=== PATIENT | female | born 1970 | race African-American/Black ===

== ENCOUNTER → 2023-09-09 | Outpatient (CLI) | payer BC ==
[2023-09-09 09:54] LABS: BASOPHILS % 0.4 % (0.0-2.0); EOSINOPHILS % 1.5 % (0.0-5.0); HEMATOCRIT. 44.3 % (36.0-48.0); HEMOGLOBIN. 14.8 g/dL (12.0-16.0); LYMPHOCYTES % 33.5 % (20.0-50.0); MEAN CORPUSCULAR HGB CONC 33.4 g/dL (31.0-37.0); MEAN CORPUSCULAR VOLUME 92.9 fL (81.0-99.0); MEAN PLATELET VOLUME 8.8 fl (7.4-10.4); NEUTROPHILS % 57.6 % (40.0-76.0); PLATELET 192 x1000/uL (130-400); RED BLOOD CELL COUNT 4.77 mill/uL (4.2-5.4); RED CELL DISTRIBUTION WIDTH 16.8 % (11.6-14.6); WHITE BLOOD COUNT 7.2 x1000/uL (4.5-11.0)
[2023-09-09 10:33] LABS: ALANINE AMINOTRANSFERASE 25 IU/L (10-49); ASPARTATE AMINOTRANSFERASE 16 IU/L (<34); BILIRUBIN TOTAL 0.5 mg/dL (0.1-1.0); CARBON DIOXIDE 28 mEq/L (21-32); CHLORIDE 110 mEq/L (98-107); CREATININE 0.8 mg/dL (0.6-1.0); GLUCOSE 98 mg/dL (70-105); POTASSIUM 3.9 mEq/L (3.5-5.1); PROTEIN TOTAL 6.6 g/dL (6.0-8.3); SODIUM 142 mEq/L (136-145); UREA NITROGEN BLOOD 10 mg/dL (9-23)
[2023-09-09 16:04] LABS: CLARITY URINE CLOUDY (CLEAR); COLOR URINE YELLOW (YELLOW); GLUCOSE URINE NEGATIVE (NEGATIVE); KETONES URINE NEGATIVE (NEGATIVE); LEUKOCYTE ESTERASE URINE NEGATIVE (NEGATIVE); NITRITE URINE NEGATIVE (NEGATIVE); OCCULT BLOOD URINE 2+ (NEGATIVE); PH URINE 5.5 (4.5-8.0); PROTEIN URINE NEGATIVE (NEGATIVE); SPECIFIC GRAVITY URINE 1.026 (1.005-1.030)
[2023-09-09 16:27] LABS: BACTERIA URINE 3+; SQUAMOUS EPITHELIAL CELL URINE 2+ /lpf (RARE/1+); WBC URINE 0-2 /hpf (0-2)
== END | disposition home or self-care (01) ==
LOC: LAB 09:28
PROVIDERS: ATTEND Nurse Practitioner Family
DX: Z01.812 Encounter for preprocedural laboratory examination (principal); L73.2 Hidradenitis suppurativa; I10 Essential (primary) hypertension
CPT/HCPCS: 36415; 80053; 81003; 85025

== ENCOUNTER → 2023-09-11 | Outpatient (CLI) | payer BC ==
[~2023-09-11] MED LIST: AMLO5TAB88 PO; MELO-106 PO; NAPR220C15 PO
== END | disposition home or self-care (01) ==
LOC: MRI 16:18
PROVIDERS: ATTEND Nurse Practitioner Family
DX: S83.281A Other tear of lateral meniscus, current injury, right knee, initial encounter (principal); S80.01XA Contusion of right knee, initial encounter; M71.21 Synovial cyst of popliteal space [Baker], right knee; M25.461 Effusion, right knee; X58.XXXA Exposure to other specified factors, initial encounter; Y93.89 Activity, other specified; Y92.89 Other specified places as the place of occurrence of the external cause; Y99.8 Other external cause status
CPT/HCPCS: 73721

== ENCOUNTER 2023-09-12 15:07 | Emergency (ER) | payer BC ==
[~2023-09-12] VITALS: Ht 165.1 cm; Wt 117.9 kg
[2023-09-12 15:13] VITALS: BP 151/124; O2SAT 99
[2023-09-12 19:08] VITALS: PULSE 104; RESP 16; TEMP 98.6
[2023-09-18] MEDS ORDERED: AMLO5TAB88 PO (05:21)
[2023-09-18] MEDS ORDERED: MELO-106 PO (05:21)
[2023-09-18] MEDS ORDERED: NAPR220C15 PO (05:21)
== END 2023-09-12 19:18 | disposition home or self-care (01) ==
LOC: ER 15:07
DX: S83.206A Unspecified tear of unspecified meniscus, current injury, right knee, initial encounter (principal); J45.909 Unspecified asthma, uncomplicated; Z90.710 Acquired absence of both cervix and uterus; X58.XXXA Exposure to other specified factors, initial encounter; Y93.89 Activity, other specified; Y92.89 Other specified places as the place of occurrence of the external cause; Y99.8 Other external cause status
CPT/HCPCS: 93971; 99284; Z7610; L1830

== ENCOUNTER → 2023-09-18 | Day surgery (SDC) | payer BC ==
[~2023-09-18] VITALS: Ht 165.1 cm; Wt 117.9 kg
[~2023-09-18] MED LIST changes: +BUPIVACAINE HCL/PF 0.5% (5MG/ML) 10ML ONE; +HYDROMORPHONE HCL/PF 2MG/ML CPJ IV PRN; +LABETALOL 5MG/ML SYR 20 MG/4 ML SYRINGE IV PRN; +LACTATED RINGERS 1,000 ML IV SCH; +MEPERIDINE HCL/PF 25MG/ML CPJ IV PRN; +ONDANSETRON HCL 4MG/2ML INJ IV PRN; +SKIN ADHESIVE 0.7 GM EA TOP ONE
== END | disposition home or self-care (01) ==
LOC: OR 06:50 → EDUNIT# 07:30
PROVIDERS: ATTEND Surgery
DX: L73.2 Hidradenitis suppurativa (principal); I10 Essential (primary) hypertension; M19.90 Unspecified osteoarthritis, unspecified site; M10.9 Gout, unspecified; Z87.891 Personal history of nicotine dependence; Z79.899 Other long term (current) drug therapy; Z98.890 Other specified postprocedural states; Z90.710 Acquired absence of both cervix and uterus
CPT/HCPCS: 11450; 88305; J3490

== ENCOUNTER → 2023-12-08 | Outpatient (CLI) | payer BC ==
[~2023-12-08] MED LIST changes: -BUPIVACAINE HCL/PF 0.5% (5MG/ML) 10ML ONE; -HYDROMORPHONE HCL/PF 2MG/ML CPJ IV PRN; -LABETALOL 5MG/ML SYR 20 MG/4 ML SYRINGE IV PRN; -LACTATED RINGERS 1,000 ML IV SCH; -MEPERIDINE HCL/PF 25MG/ML CPJ IV PRN; -ONDANSETRON HCL 4MG/2ML INJ IV PRN; -SKIN ADHESIVE 0.7 GM EA TOP ONE
== END | disposition home or self-care (01) ==
LOC: RAD 12:47
PROVIDERS: ATTEND Nurse Practitioner Family
DX: M17.0 Bilateral primary osteoarthritis of knee (principal); M25.561 Pain in right knee; M25.562 Pain in left knee
CPT/HCPCS: 73565

== ENCOUNTER 2025-04-14 07:17 | Emergency (ER) | payer BC, MEDICAID ==
[~2025-04-14] VITALS: Ht 165.1 cm; Wt 112.0 kg
[2025-04-14 07:29] VITALS: O2SAT 100
[2025-04-14 08:11] LABS: BASOPHILS % 0.5 % (0.0-2.0); EOSINOPHILS % 1.2 % (0.0-5.0); HEMATOCRIT. 46.7 % (36.0-48.0); HEMOGLOBIN. 15.6 g/dL (12.0-16.0); LYMPHOCYTES % 27.3 % (20.0-50.0); MEAN PLATELET VOLUME 9.3 fl (7.4-10.4); MONOCYTES % 7.8 % (2.0-8.0); NEUTROPHILS % 63.2 % (40.0-76.0); PLATELET 206 x1000/uL (130-400); RED BLOOD CELL COUNT 5.03 mill/uL (4.2-5.4); RED CELL DISTRIBUTION WIDTH 16.5 % (11.6-14.6)
[2025-04-14] MEDS: DIPHENOXYLATE/ATROPINE 2.5/0.025MG TABLET PO ONE (08:30)
[2025-04-14 08:32] LABS: CREATININE 1.0 mg/dL (0.6-1.0); TROPONIN I HIGH SENSITIVITY < 4 ng/L (3.0-34)
[2025-04-14 08:33] LABS: UREA NITROGEN BLOOD 12 mg/dL (9-23)
[2025-04-14 08:34] LABS: ASPARTATE AMINOTRANSFERASE 21 IU/L (<34)
[2025-04-14 08:35] LABS: BILIRUBIN DIRECT 0.2 mg/dL (<=3.0); BILIRUBIN TOTAL 0.7 mg/dL (0.1-1.0); PROTEIN TOTAL 7.1 g/dL (6.0-8.3)
[2025-04-14] MEDS ORDERED: DIPH1TAB MT (08:44)
[2025-04-14] MEDS: DIPHENOXYLATE/ATROPINE 2.5/0.025MG TABLET PO SCH (09:41)
[2025-04-14 09:54] VITALS: BP 128/89; PULSE 92; RESP 16; TEMP 37; O2SAT 100
[2025-04-15] MEDS ORDERED: IBUP-2030 MT (13:39)
== END 2025-04-14 09:43 | disposition home or self-care (01) ==
LOC: ER 07:17
DX: A08.4 Viral intestinal infection, unspecified (principal); J45.909 Unspecified asthma, uncomplicated; R07.9 Chest pain, unspecified; Z90.710 Acquired absence of both cervix and uterus
CPT/HCPCS: 36415; 80048; 80076; 84484; 85025; 93005; 99284

== ENCOUNTER 2025-04-15 10:00 | Emergency (ER) | payer BC, MEDICAID ==
[~2025-04-15] VITALS: Ht 165.1 cm; Wt 112.0 kg
[~2025-04-15 10:00] MED LIST changes: +DIPH1TAB MT
[2025-04-15 10:09] VITALS: TEMP 36.9; O2SAT 100
[2025-04-15 10:44] LABS: BASOPHILS % 0.2 % (0.0-2.0); EOSINOPHILS % 0.9 % (0.0-5.0); HEMATOCRIT. 47.5 % (36.0-48.0); HEMOGLOBIN. 15.6 g/dL (12.0-16.0); LYMPHOCYTES % 26.0 % (20.0-50.0); MEAN PLATELET VOLUME 8.7 fl (7.4-10.4); MONOCYTES % 6.4 % (2.0-8.0); NEUTROPHILS % 66.5 % (40.0-76.0); PLATELET 190 x1000/uL (130-400); RED BLOOD CELL COUNT 5.10 mill/uL (4.2-5.4); RED CELL DISTRIBUTION WIDTH 16.6 % (11.6-14.6)
[2025-04-15 10:57] LABS: CREATININE 1.0 mg/dL (0.6-1.0)
[2025-04-15 10:58] LABS: UREA NITROGEN BLOOD 15 mg/dL (9-23)
[2025-04-15] MEDS: ONDANSETRON HCL 4MG/2ML INJ IV ONE (11:35)
[2025-04-15] MEDS: KETOROLAC 30MG/ML VIAL IV ONE (11:35)
[2025-04-15 12:12] LABS: HCG SCREEN NEGATIVE
[2025-04-15 12:20] LABS: ASPARTATE AMINOTRANSFERASE 19 IU/L (<34); BILIRUBIN DIRECT 0.2 mg/dL (<=3.0); BILIRUBIN TOTAL 0.5 mg/dL (0.1-1.0); PROTEIN TOTAL 6.9 g/dL (6.0-8.3); TROPONIN I HIGH SENSITIVITY < 4 ng/L (3.0-34)
[2025-04-15] MEDS: SODIUM CHLORIDE 0.9% 1,000 ML IV ONE (13:22)
[2025-04-15] MEDS ORDERED: IBUP-2030 MT (13:39)
[2025-04-15] MEDS ORDERED: IOHEXOL-300 100 ML BOTTLE ONE (15:41)
[2025-04-15 16:09] VITALS: BP 135/84; PULSE 78; RESP 18; O2SAT 100
== END 2025-04-15 16:10 | disposition home or self-care (01) ==
LOC: ER 10:00
DX: R10.84 Generalized abdominal pain (principal); I10 Essential (primary) hypertension; J45.909 Unspecified asthma, uncomplicated; Z90.49 Acquired absence of other specified parts of digestive tract; Z90.710 Acquired absence of both cervix and uterus
CPT/HCPCS: 80076; 80048; 84703; 83690; 85025; 84484; 36415; 74177; 93005; 96361; 96374; 96375; 99285; Q9967; J1885; J2405; J7030; Z7610

== ENCOUNTER 2025-04-19 00:36 | Emergency (ER) | payer BC, MEDICAID ==
[~2025-04-19] VITALS: Ht 157.5 cm; Wt 104.0 kg
[~2025-04-19 00:36] MED LIST changes: +IBUP-2030 MT
[2025-04-19 00:44] VITALS: O2SAT 100
[2025-04-19] MEDS ORDERED: FAMOTIDINE 20MG/2ML VIAL IV STA (01:32)
[2025-04-19] MEDS: FAMOTIDINE 20MG/2ML VIAL IV NR (03:11)
[2025-04-19] MEDS: ONDANSETRON HCL 4MG/2ML INJ IV STA (03:14)
[2025-04-19] MEDS: MORPHINE SULFATE 4 MG/ML INJ (FOR IV/IM USE) IV STA (03:14)
[2025-04-19] MEDS: SODIUM CHLORIDE 0.9% 1,000 ML IV ONE (03:14)
[2025-04-19 03:16] LABS: BASOPHILS % 0.3 % (0.0-2.0); EOSINOPHILS % 2.8 % (0.0-5.0); HEMATOCRIT. 46.0 % (36.0-48.0); HEMOGLOBIN. 15.4 g/dL (12.0-16.0); LYMPHOCYTES % 24.3 % (20.0-50.0); MEAN PLATELET VOLUME 9.8 fl (7.4-10.4); MONOCYTES % 9.5 % (2.0-8.0); NEUTROPHILS % 63.1 % (40.0-76.0); PLATELET 191 x1000/uL (130-400); RED BLOOD CELL COUNT 4.94 mill/uL (4.2-5.4); RED CELL DISTRIBUTION WIDTH 16.6 % (11.6-14.6)
[2025-04-19 03:21] LABS: CREATININE 0.8 mg/dL (0.6-1.0); UREA NITROGEN BLOOD 7 mg/dL (9-23)
[2025-04-19 03:23] LABS: ASPARTATE AMINOTRANSFERASE 13 IU/L (<34); BILIRUBIN DIRECT 0.2 mg/dL (<=3.0); BILIRUBIN TOTAL 0.5 mg/dL (0.1-1.0)
[2025-04-19 03:24] LABS: PROTEIN TOTAL 6.7 g/dL (6.0-8.3)
[2025-04-19 04:00] LABS: HCG SCREEN NEGATIVE
[2025-04-19] MEDS ORDERED: ONDA4TAB50 MT (04:15)
[2025-04-19 04:39] VITALS: BP 142/70; PULSE 76; RESP 14; TEMP 37; O2SAT 100
== END 2025-04-19 05:25 | disposition home or self-care (01) ==
LOC: ER 00:36
DX: R10.13 Epigastric pain (principal); R11.2 Nausea with vomiting, unspecified; R19.7 Diarrhea, unspecified; I10 Essential (primary) hypertension; J45.909 Unspecified asthma, uncomplicated; Z90.710 Acquired absence of both cervix and uterus; Z90.49 Acquired absence of other specified parts of digestive tract
CPT/HCPCS: 99285; 74176; 96374; 96375; 71045; 96361; 80076; 80048; 84703; 83690; 85025; 36415; J1308; J2405; J2270; J7030

== ENCOUNTER 2025-07-23 08:13 | Emergency (ER) | payer BC, MEDICAID ==
[~2025-07-23] VITALS: Ht 165.1 cm; Wt 109.0 kg
[~2025-07-23 08:13] MED LIST changes: +ONDA4TAB50 MT
[2025-07-23 08:19] VITALS: O2SAT 100
[2025-07-23 08:30] VITALS: BP 142/70; PULSE 87; RESP 14; TEMP 36.8; O2SAT 99
[2025-07-23] MEDS ORDERED: CIPR2.5D20 EACHEYE (08:43)
[2025-07-23] MEDS: CIPROFLOXACIN 0.3% OPHTH SOLN 2.5ML BOTHEYE ONE (08:54)
== END 2025-07-23 09:01 | disposition home or self-care (01) ==
LOC: ER 08:20
DX: H10.029 Other mucopurulent conjunctivitis, unspecified eye (principal); I10 Essential (primary) hypertension; J45.909 Unspecified asthma, uncomplicated; Z90.710 Acquired absence of both cervix and uterus; Z79.899 Other long term (current) drug therapy
CPT/HCPCS: 99283